=== PATIENT | female | born 1980 ===

== ENCOUNTER 2018-08-15 11:03 | Emergency (ER) | payer BC ==
[2018-08-15 16:08] VITALS: BMI 25.7
[2018-08-15 17:17] VITALS: BP 121/78; PULSE 75; RESP 18; TEMP 98.1; O2SAT 98
== END 2018-08-15 16:45 | disposition home or self-care (01) ==
LOC: ED 11:03
DX: T78.40XA Allergy, unspecified, initial encounter (principal); N39.0 Urinary tract infection, site not specified

== ENCOUNTER 2019-02-07 19:34 | Emergency (ER) | payer BC ==
[2019-02-07 19:51] VITALS: BMI 23.0
[2019-02-07 19:53] VITALS: RESP 18; O2SAT 99
[2019-02-07 20:20] LABS: URINE BILIRUBIN NEGATIVE (NEGATIVE); URINE BLOOD SMALL (NEGATIVE); URINE GLUCOSE (UA) NEGATIVE (NEGATIVE); URINE LEUKOCYTE ESTERASE NEGATIVE Leu/uL (NEGATIVE); URINE PROTEIN 30 mg/dL (<30 mg/dL); URINE UROBILINOGEN 0.2 E.U./dL (<1 E.U./dL)
[2019-02-07 20:21] LABS: URINE APPEARANCE SLIGHT-CLOUDY (CLEAR); URINE COLOR LIGHT YELLOW (YELLOW)
[2019-02-07 20:33] LABS: URINE RBC 0 - 2 /hpf (0-2)
[2019-02-07] MEDS ORDERED: cefTRIAXone (Rocephin) 250 mg Inj IM STA (20:46)
[2019-02-07 22:10] VITALS: BP 120/80; PULSE 66; TEMP 98.2
--- NOTE | 2019-02-08 03:25 | ED PDOC ---
Arrival/HPI - General Chief Complaint: Female Genitourinary Time Seen by Provider: 02/07/19 19:58 - History of Present Illness Narrative History of Present Illness (Text): white vaginal discharge, dysuria, pruritis, discomfort x 1 day Tried OTC vagisil without relief Has established gynecology followup No concern for STI Denies fever, chills, abdominal pain, back pain, nausea, vomiting, hematuria, vaginal bleeding, or any other associated symptoms. Past Medical History - Infectious Disease Hx of Infectious Diseases: None - Psychiatric Hx Substance Use: No Family/Social History Smoking Status: Never Smoked Hx Alcohol Use: Yes Frequency of alcohol use: Socially Hx Substance Use: No Allergies/Home Meds Allergies/Adverse Reactions: Allergies No Known Allergies Allergy (Verified 02/07/19 19:51) Review of Systems - Review of Systems Constitutional: Normal. absent: Fatigue, Fevers Eyes: Normal. absent: Vision Changes ENT: Normal. absent: Sore Throat, Sinus Congestion Respiratory: Normal. absent: SOB, Cough Cardiovascular: Normal. absent: Chest Pain, Palpitations Gastrointestinal: Normal. absent: Abdominal Pain, Stool Changes, Nausea, Vomiting, Appetite Changes Genitourinary Female: Dysuria, Vaginal Discharge. absent: Hematuria, Vaginal Bleeding Musculoskeletal: Normal. absent: Back Pain, Neck Pain Skin: Normal. absent: Rash Neurological: Normal. absent: Headache, Dizziness Endocrine: Normal Hemo/Lymphatic: Normal Psychiatric: Normal Physical Exam Vital Signs Reviewed: Yes Vital Signs Temp Pulse Resp BP Pulse Ox 02/07/19 21:30 98.2 F 66 18 120/80 99 02/07/19 19:51 98.4 F 68 18 128/83 99 Temperature: Afebrile Blood Pressure: Normal Pulse: Regular Respiratory Rate: Normal Appearance: Positive for: Well-Appearing, Non-Toxic, Comfortable Pain Distress: None Mental Status: Positive for: Alert and Oriented X 3 - Systems Exam Head: Present: Atraumatic, Normocephalic Pupils: Present: PERRL Extroacular Muscles: Present: EOMI Conjunctiva: Present: Normal Mouth: Present: Moist Mucous Membranes Neck: Present: Normal Range of Motion. No: MIDLINE TENDERNESS, Paraspinal Tenderness Respiratory/Chest: Present: Clear to Auscultation, Good Air Exchange. No: Respiratory Distress, Accessory Muscle Use Cardiovascular: Present: Regular Rate and Rhythm, Normal S1, S2, Peripheal Pulses Present Abdomen: Present: Normal Bowel Sounds. No: Tenderness, Distention, Peritoneal Signs, Rebound, Guarding Genitourinary/Pelvic Exam: Present: Normal External Genitalia, Vaginal Disch arge, Cervical os Closed, Odor. No: Vaginal Bleeding, Adenexal Tenderness, Adenexal Mass, Cervical Motion Tendernes Back: Present: Normal Inspection. No: CVA Tenderness, Paraspinal Tenderness Upper Extremity: Present: Normal Inspection, Normal ROM, NORMAL PULSES, Neurovascularly Intact, Capillary Refill < 2s. No: Cyanosis, Edema, Temperature Abnormalties Lower Extremity: Present: Normal ROM Neurological: Present: GCS=15, CN II-XII Intact, Speech Normal Skin: Present: Warm, Dry, Normal Color. No: Rashes Psychiatric: Present: Alert, Oriented x 3, Normal Insight, Normal Concentration, Normal Affect, Normal Mood Medical Decision Making ED Course and Treatment: Initial Plan: * UA, culture * POC preg * GC/Chlamydia * Rocephin * Azithromycin Pt empirically treated for gonorrhea and chlamydia. Pelvic exam suspicious for candidal infection. UA unremarkable POC preg negative Diagnostic testing results and plan of care discussed with patient. Strict instructions given regarding prescription use, importance of followup, and signs/symptoms to return to ER including fever, chills, back pain, or any other new/worsening symptoms. Pt verbalized understanding of discussion. Patient is A&Ox3, ambulating with steady gait, with vital signs stable for discharge. - Lab Interpretations Lab Results: Urine Color Light yellow (YELLOW) 02/07/19 20:17 Urine Appearance Slight-cloudy (CLEAR) 02/07/19 20:17 Urine pH 6.0 (4.7-8.0) 02/07/19 20:17 Ur Specific [place] >= 1.030 (1.005-1.035) 02/07/19 20:17 Urine Protein 30 mg/dL (<30 mg/dL) H 02/07/19 20:17 Urine Glucose (UA) Negative mg/dL (NEGATIVE) 02/07/19 20: Urine Ketones Negative mg/dL (NEGATIVE) 02/07/19 20:17 Urine Blood Small (NEGATIVE) H 02/07/19 20:17 Urine Nitrate Negative (NEGATIVE) 02/07/19 20:17 Urine Bilirubin Negative (NEGATIVE) 02/07/19 20:17 Urine Urobilinogen 0.2 E.U./dL (<1 E.U./dL) 02/07/19 20:17 Ur Leukocyte Esterase Negative Charan/uL (NEGATIVE) 02/07/19 20:17 Urine RBC 0 - 2 /hpf (0-2) 02/07/19 20:17 Urine WBC 2 - 5 /hpf (0-6) 02/07/19 20:17 Ur Epithelial Cells 1 - 3 /hpf (0-5) 02/07/19 20:17 Urine Other Mucus /hpf 02/07/19 20:17 - Medication Orders Current Medication Orders: Discontinued Medications Azithromycin (Zithromax) 1,000 mg PO STAT STA; Protocol Stop: 02/07/19 20:47 Last Admin: 02/07/19 21:00 Dose: 1,000 mg Ceftriaxone Sodium (Rocephin) 250 mg IM STAT STA; Protocol Stop: 02/07/19 20:47 Last Admin: 02/07/19 21:00 Dose: 250 mg IM Administration Charges Document 02/07/19 21:00 (Rec[facility] 02/07/19 21:00 [id number] Injection Site MAR Injection Site Left Gluteus Medius Charges for Administration # of IM Administrations 1 Disposition/Present on Arrival - Present on Arrival History of DVT/PE: No History of Uncontrolled Diabetes: No Urinary Catheter: No History of Decub. Ulcer: No History Surgical Site Infection Following: None - Disposition Diagnosis: Vaginal candidiasis Disposition: HOME/ ROUTINE Condition: STABLE Discharge Instructions (ExitCare): Vulvovaginal Yeast Infection Additional Instructions: Increase fluids Monistat as directed Followup with electromechanical assembler within 2 days Followup with primary within 2 days Return to ER with any new/worsening symptoms Prescriptions: Miconazole [Miconazole 7] 100 mg VG DAILY #7 sup Referrals: [facility] [place] [facility] [place] - [facility] - Follow up with primary Paris Delaney MD [Medical Doctor] - Follow up with primary Forms: [employer] ([place]istani), WORK NOTE
== END 2019-02-07 22:10 | disposition home or self-care (01) ==
LOC: ED 19:34
DX: B37.3 Candidiasis of vulva and vagina (principal)
CPT/HCPCS: 81001; 81025; 87491; 87591; 96372; 99283; J0696